=== PATIENT | male | born 1990 | race Two or more races ===

== ENCOUNTER 2023-12-10 22:29 | Emergency (ER) | payer SELFPAY ==
[~2023-12-10] VITALS: Ht 172.7 cm; Wt 73.0 kg
[2023-12-10 22:29] VITALS: BP 125/85; PULSE 78; RESP 20; O2SAT 98
[2023-12-11] MEDS ORDERED: IBUP1TAB5 PO (17:23)
== END 2023-12-11 03:37 | disposition left against medical advice (07) ==
LOC: ER 22:29
DX: R10.9 Unspecified abdominal pain (principal); Z53.21 Procedure and treatment not carried out due to patient leaving prior to being seen by health care provider

== ENCOUNTER 2023-12-11 15:19 | Emergency (ER) | payer SELFPAY ==
[~2023-12-11] VITALS: Ht 177.8 cm; Wt 75.0 kg
[2023-12-11 16:39] VITALS: BP 133/83; PULSE 84; RESP 14; TEMP 98; O2SAT 98
[2023-12-11] MEDS: IBUPROFEN 600 MG TAB PO ONE (17:02)
[2023-12-11] MEDS ORDERED: IBUP1TAB5 PO (17:23)
== END 2023-12-11 17:24 | disposition home or self-care (01) ==
LOC: ER 15:19
DX: S02.5XXA Fracture of tooth (traumatic), initial encounter for closed fracture (principal); X58.XXXA Exposure to other specified factors, initial encounter; Y93.89 Activity, other specified; Y92.89 Other specified places as the place of occurrence of the external cause; Y99.8 Other external cause status